=== PATIENT | female | born 1995 | race Caucasian/White ===

== ENCOUNTER 2018-07-05 18:44 | Emergency (ER) | payer SELFPAY ==
[~2018-07-05] VITALS: Ht 162.6 cm; Wt 61.4 kg
[2018-07-05 18:59] VITALS: BP 129/82; TEMP 98.5
[2018-07-05] MEDS ORDERED: ZITHROMAX Z PA250 MG PO (19:10)
[2018-07-05 19:30] VITALS: PULSE 83
[2018-07-05] MEDS ORDERED: ALDACTONE50 MG PO (19:34)
[2018-07-05] MEDS ORDERED: BIRTH CONTROL (19:34)
== END 2018-07-05 19:31 | disposition home or self-care (01) ==
LOC: COL.ER 18:44
DX: J40 Bronchitis, not specified as acute or chronic (principal)

== ENCOUNTER 2019-02-28 02:00 | Emergency (ER) | payer BC ==
[~2019-02-28] VITALS: Ht 162.6 cm; Wt 63.6 kg
[~2019-02-28 02:00] MED LIST: ALDACTONE50 MG PO; BIRTH CONTROL; ZITHROMAX Z PA250 MG PO
[2019-02-28 03:07] LABS: COLLECTION METHOD CLEAN CATCH
[2019-02-28 03:11] LABS: HEMATOCRIT 43.1 % (37.0-47.0); HEMOGLOBIN 14.8 g/dl (12.5-16.0); MEAN CELL VOLUME 85 fl (80.0-100.0); MEAN CORPUSCULAR HEMOGLOBIN 29 pg (27.0-31.0); MEAN CORPUSCULAR HGB CONC 34 g/dl (33.0-37.0); MEAN PLATELET VOLUME 9.3 fl (7.4-10.4); PLATELET COUNT 308 K/mm3 (130-400); RED BLOOD COUNT 5.06 M/mm3 (4.10-5.30); REDCELL DISTRIBUTION WIDTH-CV 11.5 % (11.5-14.5)
[2019-02-28 03:16] LABS: MUCOUS Present /lpf; PH 6 (5-8); SQUAMOUS EPITHELIAL 20-50 /hpf; URINE APPEARANCE Cloudy; URINE BACTERIA Rare /hpf; URINE BILIRUBIN Negative (NEGATIVE); URINE BLOOD Negative (NEGATIVE); URINE COLOR Amber; URINE GLUCOSE Negative (NEGATIVE); URINE KETONE 2+ (NEGATIVE); URINE LEUKOCYTE ESTERASE 2+ (NEGATIVE); URINE NITRATE Negative (NEGATIVE); URINE PROTEIN(semi-quant) 1+ (NEGATIVE); URINE RBC 20-50 /hpf
[2019-02-28 03:20] LABS: ALBUMIN 4.5 gm/dL (3.5-5.0); BILIRUBIN,TOTAL 0.9 mg/dL (0.0-1.0); C-REACTIVE PROTEIN 1.5 mg/dL (0.0-0.9); CALCIUM 9.6 mg/dL (8.4-10.2); CREATININE, serum 0.58 (0.52-1.25); POTASSIUM 3.7 mmol/L (3.4-5.0); TOTAL PROTEIN 8.3 gm/dL (6.4-8.2)
[2019-02-28 04:12] LABS: BAND 13 % (0-10); EOSINOPHIL 1 % (0-4); LYMPHOCYTE 4 % (20.0-51.0); NEUTROPHILS 77 % (42.0-75.2); PLATELET ESTIMATE NORMAL (NORMAL)
[2019-02-28 04:14] LABS: COLLECTION METHOD CLEAN CATCH
[2019-02-28 04:19] LABS: MUCOUS Present /lpf; PH 7 (5-8); SQUAMOUS EPITHELIAL 0-2 /hpf; URINE APPEARANCE Clear; URINE BACTERIA None Seen /hpf; URINE BILIRUBIN Negative (NEGATIVE); URINE BLOOD Negative (NEGATIVE); URINE COLOR Yellow; URINE GLUCOSE Negative (NEGATIVE); URINE KETONE 2+ (NEGATIVE); URINE LEUKOCYTE ESTERASE Negative (NEGATIVE); URINE NITRATE Negative (NEGATIVE); URINE PROTEIN(semi-quant) Negative (NEGATIVE); URINE RBC 0-2 /hpf; URINE UROBILINOGEN Negative (NEGATIVE)
[2019-02-28] MEDS ORDERED: ZOFRAN 4MG T4 MG/TAB PO (06:00)
[2019-02-28 06:10] VITALS: BP 103/55; PULSE 101; TEMP 99
== END 2019-02-28 06:10 | disposition home or self-care (01) ==
LOC: COL.ER 02:00
PROVIDERS: Emergency Medicine
DX: R11.2 Nausea with vomiting, unspecified (principal); R19.7 Diarrhea, unspecified
CPT/HCPCS: J2405; J7030; Q9967

== ENCOUNTER → 2020-03-03 | Outpatient (CLI) | payer BC ==
[~2020-03-03] MED LIST changes: +ZOFRAN 4MG T4 MG/TAB PO
== END ==
LOC: COL.RAD 12:53
DX: R22.2 Localized swelling, mass and lump, trunk (principal)